=== PATIENT | female | born 1965 | race Caucasian/White ===

== ENCOUNTER 2016-11-23 09:33 | Inpatient (IN) | payer BC, OTHER ==
[2016-11-23 09:39] VITALS: BMI 26.5
[2016-11-23 10:30] LABS: EOSINOPHIL 4.6 % (0-4.5); MCH 31.6 pg (25.7-33.7); MCHC 33.9 g/dl (32.0-36.0); MEAN CELL VOLUME 93.3 fl (80-96); MEAN PLT VOLUME 8.4 fl (7.5-11.1); PLATELET COUNT 232 K/MM3 (134-434); RDW 13.3 % (11.6-15.6); WHITE BLOOD COUNT 5.2 K/mm3 (4.0-10.0)
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
[2016-11-23 10:52] LABS: ALBUMIN 3.9 g/dl (3.4-5.0); ALK PHOS 61 U/L (45-117); ANION GAP 4 (8-16); BILIRUBIN,TOTAL 0.4 mg/dL (0.2-1.0); CALCIUM 8.4 mg/dL (8.5-10.1); CO2 28 mmol/L (21-32); CREATININE 0.9 mg/dL (0.55-1.02); GLUCOSE,RANDOM 73 mg/dL (74-106); SGOT/AST 23 U/L (15-37); SGPT/ALT 25 U/L (12-78); TOT PROT 6.7 g/dl (6.4-8.2)
[2016-11-23 12:39] LABS: URINE APPEARANCE CLEAR; URINE BILIRUBIN NEGATIVE (NEGATIVE); URINE COLOR LTYELLOW; URINE GLUCOSE (UA) NEGATIVE (NEGATIVE); URINE KETONE NEGATIVE (NEGATIVE); URINE LEUK ESTERASE NEGATIVE (NEGATIVE); URINE NITRITE NEGATIVE (NEGATIVE); URINE PROTEIN NEGATIVE (NEGATIVE); URINE UROBILINOGEN NEGATIVE E.U./dl (0.2-1.0)
[2016-11-23 12:41] LABS: URINE BLOOD 3+ (NEGATIVE)
[2016-11-23 12:45] LABS: URINE RBC 202 /hpf (0-3)
--- NOTE | 2016-11-23 15:27 | EKG ---
Test Reason : Blood Pressure : / mmHG Vent. Rate : 056 BPM Atrial Rate : 056 BPM P-R Int : 176 ms QRS Dur : 078 ms QT Int : 436 ms P-R-T Axes : 044 052 046 degrees QTc Int : 420 ms SINUS BRADYCARDIA LOW VOLTAGE QRS SEPTAL INFARCT , AGE UNDETERMINED ABNORMAL ECG NO PREVIOUS ECGS AVAILABLE Confirmed by ETHAN BAR, STACEY ([id number]) on 11/23/2016 3:26:35 PM Referred By: Confirmed By:STACEY LONG MD
[2016-11-23] MEDS ORDERED: ACETAMINOPHEN 1000 MG/100 ML VIAL (NON FORMULARY) IVPB ONE (17:00)
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
[2016-11-23] MEDS ORDERED: PROPOFOL 20 ML ONE ×2 (19:30)
[2016-11-23] MEDS ORDERED: ceFAZolin SODIUM 1 GM VIAL ONE (19:38)
[2016-11-23] MEDS ORDERED: ceFAZolin SODIUM 1 GM VIAL IVPB ONE (19:42)
[2016-11-23] MEDS ORDERED: ONDANSETRON 4 MG/2 ML VIAL ONE (19:46)
[2016-11-23] MEDS ORDERED: KETOROLAC TROMETHAMINE 30 MG/1 ML VIAL ONE (19:47)
[2016-11-23] MEDS ORDERED: IBUPROFEN 600 MG TABLET (FP) PO PRN (19:57)
[2016-11-23] MEDS ORDERED: ACETAMINOPHEN 325 MG TABLET (FP) PO PRN (19:57)
--- NOTE | 2016-11-23 19:57 | OP ---
Operative Note - Note: Operative Date: 11/23/16 Pre-Operative Diagnosis: Menorrhagia, anemia Operation: Suction, D&C Findings: Anteverted uterus 7wk size with active bleeding. Scant endometrial tissue Post-Operative Diagnosis: Same as Pre-op Surgeon: Frank Aldrich Anesthesiologist/CONVENTIONAL MACHINIST: Isaac Briceno Anesthesia: General Specimens Removed: Endometrial curettings Estimated Blood Loss (mls): 10 Blood Volume Replaced (mls): 0 Fluid Volume Replaced (mls): 300 Operative Report Dictated: Yes
[2016-11-23] MEDS ORDERED: ONDANSETRON 4 MG/2 ML VIAL IVPUSH PRN (20:03)
[2016-11-23] MEDS ORDERED: LACTATED RINGERS SOLUTION 1,000 ML IV SCH (20:15)
[2016-11-24 02:24] VITALS: BP 133/61; PULSE 76; TEMP 97.9
--- NOTE | 2016-11-24 14:55 | OP ---
DATE OF OPERATION: 11/23/2016 PREOPERATIVE DIAGNOSES: Menorrhagia, anemia. POSTOPERATIVE DIAGNOSES: Menorrhagia, anemia. PROCEDURE: Suction dilatation and curettage. SURGEON: Frank Aldrich MD ANESTHESIOLOGIST: Isaac Briceno DO ANESTHESIA: General. COMPLICATIONS: None. ESTIMATED BLOOD LOSS: 10 mL INTRAVENOUS FLUIDS: 300 mL of crystalloids. PATHOLOGY: Endometrial curettings. FINDINGS: Examination under anesthesia revealed an anteverted uterus, approximately 7 weeks' gestational size. There were no pelvic or adnexal masses. The vaginal examination revealed normal vaginal canal and cervix with active uterine bleeding. Scant endometrial curettings were obtained during the curettage and sent to Pathology. DESCRIPTION OF PROCEDURE: The patient was met preoperatively. Risks, benefits, and alternatives of surgery were discussed in details. All questions were answered. The patient was then brought to the OR with the IV running. She was placed on the surgical table in the supine position. General anesthesia was achieved without difficulty. The patient was then placed in a dorsal lithotomy position using adjustable Laurent stirrups. The patient was examined under anesthesia with the findings as described above. She was then prepped and draped in the usual sterile fashion. A timeout was conducted as per standard protocol. A sterile speculum was then introduced inside the vagina with good visualization of the cervix. The cervical os did not need to be dilated. A number 2 curette was used for endometrial curettage. A 6-mm suction curette was then used to evacuate all of the tissue from inside the uterine cavity. Once this was completed, good hemostasis was assured. Sponge, lap, instrument counts were correct. The patient was transferred to recovery room in stable condition. Madiha [id number]
--- NOTE | 2016-11-25 13:36 | PATH ---
Surgical Pathology Report Patient Name: GHADA VALDEZ [facility]. Rec. #: [id number] /Age/Gender: 1965 (Age: 51) / F Account: [id number] Location: [address] [place] [address]/[facility] Taken: 11/23/2016 Received: 11/24/2016 Reported: 11/25/2016 Physicians: Frank Aldrich M.D. Specimen(s) Received ENDOMETRIAL CURETTINGS Clinical History Menorrhagia with irregular cycle Final Diagnosis ENDOMETRIUM, CURETTAGE: FRAGMENTS OF PREDOMINANTLY INACTIVE ENDOMETRIUM WITH EXTENSIVE STROMAL BREAKDOWN AND FOCAL AREAS SUGGESTIVE OF ENDOMETRIAL POLYP. FRAGMENTS OF BENIGN ENDOCERVICAL TISSUE. Electronically Signed Palomo Martínez M.D. Gross Description Received in formalin labeled "endometrial curettings" is a 2.7 x 2.0 x 0.3 cm aggregate of isabel-brown soft tissue fragments. The formalin is filtered and the specimen is entirely submitted in one cassette. /11/24/2016 saudi/11/24/2016
== END 2016-11-23 22:10 | disposition home or self-care (01) | DRG 745 ==
LOC: JER 09:33 → JERBED 13:07 → J5S 14:10
PROVIDERS: ADMIT Obstetrics & Gynecology; ATTEND Obstetrics & Gynecology
PROC: 0UDB7ZX Extraction of Endometrium, Via Natural or Artificial Opening, Diagnostic (ICD-10-PCS; principal; 2016-11-23 17:00)
DX: N92.1 Excessive and frequent menstruation with irregular cycle (principal); E03.9 Hypothyroidism, unspecified; D64.9 Anemia, unspecified
CPT/HCPCS: 36415; 80053; 81003; 81015; 85025; 86850; 86900; 86901; 87086; 88305-TC; 93005; 93010; 94760; 99285-25

== ENCOUNTER 2016-12-10 18:08 | Emergency (ER) | payer BC, OTHER ==
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
--- NOTE | 2016-12-10 18:22 | PDOC ---
Attending Attestation - Resident Resident Name: Jacques Dickens - ED Attending Attestation I have performed the following: I have examined & evaluated the patient, The case was reviewed & discussed with the resident, I agree w/resident's findings & plan, Exceptions are as noted - HPI HPI: The patient is a 51 yo F with a past medical history significant for hypothyroidism who presents with rash on inner thighs and SOB. The patient states the rash doesnt itch or hurt. She states the SOB is worsened with exercise. Patient was admitted at [facility] on the for vaginal bleeding and anemia and states she had an ablation on the . Patient also endorses associated palpitations, occasional lightheadedness and diarrhea. She notes her stool has been dark because she has been taking iron supplements. The patient states shes spotting currently but was told this was normal s/p her ablation. The patient denies palpitations and chest pain. The patient also endorses occasional dizziness and diarrhea. OBGYN: Dr. Aldrich - Physicial Exam PE: GENERAL: The patient is awake, alert, and fully oriented, Nontoxic - in no acute distress. HEAD: Normocephalic, atraumatic. EYES: extraocular movements intact, sclera anicteric, conjunctiva clear. ENT: Normal voice, Moist mucous membranes. NECK: Normal range of motion, supple without lymphadenopathy, JVD, or masses. LUNGS: Breath sounds equal, clear to auscultation bilaterally. No wheezes, no crackles, no rales. HEART: Regular rate and rhythm, normal S1 and S2 without murmur, rub or gallop. ABDOMEN: Soft, nontender, normoactive bowel sounds. No guarding, no rebound. No masses. EXTREMITIES: Normal range of motion, no edema. No clubbing or cyanosis. No cords, erythema, or tenderness. NEUROLOGICAL: No facial assymetry, Normal speech, normal gait. PSYCH: Normal mood, normal affect. SKIN: Warm, Dry, normal turgor,. Cammie hyperpigmentation along inner thighs bilaterally. - Medical Decision Making Documentation prepared by Fern Houser, acting as biomedical equipment technician for Emergency Dept,Physician, /DO. <Fern Houser - Last Filed: 12/10/16 18:53> - Resident Resident Name: Jacques Dickens - ED Attending Attestation I have performed the following: I have examined & evaluated the patient, The case was reviewed & discussed with the resident, I agree w/resident's findings & plan, Exceptions are as noted - HPI HPI: 12/10/16 18:55 51y F hx of vaginal bleeding s/p dc and ablation presents for evaluation of a cammie hyperpigmented rash on her thighs and feeling of intermittent exertional sob, lightheadedness w/o any chest diaz, hemoptysis, leg swelling, cough, f/c, back pain, abd pain. on exam pt has non tender, non erythemadous, non indurated , non fluctuant cammie hyperpigmented rash. sob/lightheaded - will r/o anemia rash - unclear etiology? does not seem infectious nor inflammatory in nature, ? exposure to something from procedure? - pt has a fu appointment with derm tomorrow - no acute treatment for now. 12/10/16 19:45 labs reiewed hct at baseline otherwise unremarakble will dc the pt to fu with derm and habilitation training specialist return precautions were discussed I discussed the physical exam findings, ancillary test results and final diagnoses with the patient. I answered all of the patient's questions. The patient was satisfied with the care received and felt comfortable with the discharge plan and treatment plan. The patient will call their primary care physician within 24 hours to arrange follow-up and will return to the Emergency Department with any new, persistent or worsening symptoms. - Physicial Exam PE: 12/10/16 22:02 see above - Medical Decision Making 12/10/16 22:02 see above <Lionel Hankins - Last Filed: 12/10/16 22:02>
[2016-12-10 18:27] VITALS: BP 147/95; PULSE 70; TEMP 98.5; BMI 26.5
[2016-12-10] MEDS ORDERED: SODIUM CHLORIDE 1,000 ML IV STA (18:49)
[2016-12-10 19:13] LABS: BASOPHIL 1.2 % (0-2.0); EOSINOPHIL 4.2 % (0-4.5); MCH 30.9 pg (25.7-33.7); MCHC 32.6 g/dl (32.0-36.0); MEAN CELL VOLUME 94.7 fl (80-96); MEAN PLT VOLUME 8.5 fl (7.5-11.1); PLATELET COUNT 195 K/MM3 (134-434); RDW 13.2 % (11.6-15.6); WHITE BLOOD COUNT 6.4 K/mm3 (4.0-10.8)
[2016-12-10 19:21] LABS: ALK PHOS 57 U/L (32-92); GLUCOSE,RANDOM 111 mg/dl (74-106)
[2016-12-10 19:30] LABS: ALBUMIN 4.2 g/dl (3.5-5.0); ANION GAP 7 (8-16); BILIRUBIN,TOTAL 0.5 mg/dl (0.2-1.0); CALCIUM 8.7 mg/dl (8.4-10.2); CO2 25 mmol/L (22-28); CREATININE 0.9 mg/dl (0.6-1.3); SGOT/AST 29 U/L (10-42); SGPT/ALT 33 U/L (10-40); TOT PROT 6.5 g/dl (6.4-8.3)
== END 2016-12-10 19:50 | disposition home or self-care (01) ==
LOC: FER 18:08
PROC: 3E0337Z Introduction of Electrolytic and Water Balance Substance into Peripheral Vein, Percutaneous Approach (ICD-10-PCS; principal; 2016-12-10)
DX: R21 Rash and other nonspecific skin eruption (principal); D64.9 Anemia, unspecified; E03.9 Hypothyroidism, unspecified
CPT/HCPCS: 36415; 80053; 84703; 85025; 99283-25

== ENCOUNTER 2021-05-09 06:44 | Emergency (ER) | payer BC, OTHER ==
[2021-05-09 07:04] VITALS: BP 120/78; PULSE 75; TEMP 98.7; BMI 26.5
[2021-05-09] MEDS ORDERED: CEPHALEXIN MONOHYDRATE 500 MG CAPSULE (UD) PO ONE (08:35)
[2021-05-09 08:53] LABS: EPITHELIAL CELLS FEW /hpf
[2021-05-09] MEDS ORDERED: CEPHALEXIN MONOHYDRATE 500 MG CAPSULE (UD) ONE (08:53)
== END 2021-05-09 09:15 | disposition home or self-care (01) ==
LOC: FER 06:44
DX: N39.0 Urinary tract infection, site not specified (principal); R82.998 Other abnormal findings in urine
CPT/HCPCS: 81003; 81015; 87086; 87186; 99283-25